=== PATIENT | male | born 1965 | race Caucasian/White ===

== ENCOUNTER 2019-03-25 16:33 | Emergency (ER) | payer BC ==
--- OUTSIDE RECORDS SUMMARY | ~2019-03-25 | XMS | Clinical Summary ---
Demographics + + + | Address | [address] | | | [place] [address] | + + + | Home Phone | | + + + | Preferred Language | Unknown | + + + | Marital Status | | + + + | Evangelical Affiliation | Unknown | + + + | Race | Unknown | + + + | Ethnic Group | Unknown | + + + Author + + + | Author | [facility] | | | and [place] | + + + | Organization | [facility] | | | and [place] | + + + | Address | Unknown | + + + | Phone | Unavailable | + + + Support + + +---------+ + | Name | Relationship | Address | Phone | + + +---------+ + | Treva Booker | ECON | Unknown | | + + +---------+ + Care Team Providers + +------+ + | Care Specimen Accessioner Name | Role | Phone | + +------+ + | Radames Ca MD | PCP | | + +------+ + Allergies Not on File Medications Not on file Active Problems Not on file Social History + +-------+ +--------+------+ | Tobacco Use | Types | Packs/Day | Years | Date | | | | | Used | | + +-------+ +--------+------+ | Current Some Day | | | | | | Smoker | | | | | + +-------+ +--------+------+ + + + | Sex Assigned at | Date Recorded | | | | + + + | Not on file | | + + + + + + + | Job Start Date | Occupation | Industry | + + + + | Not on file | Not on file | Not on file | + + + + + + + + | Travel History | Travel Start | Travel End | + + + + + + | No recent travel history available. | + + Last Filed Vital Signs Not on file Plan of Treatment + + + + + | Health Maintenance | Due Date | Last Done | Comments | + + + + + | Vaccine: | | | | | Dtap/Tdap/Td (1 - | 7 | | | | Tdap) | | | | + + + + + | Vaccine: Zoster (1 | | | | | of 2) | 6 | | | + + + + + | Vaccine: Influenza | | | | | (#1) | 9 | | | + + + + + Results Not on filefrom Last 3 Months"
--- OUTSIDE RECORDS SUMMARY | ~2019-03-25 | XMS | Encounter Summary ---
Demographics + + + | Address | [address] | | | [place] [address] | + + + | Home Phone | | + + + | Preferred Language | Unknown | + + + | Marital Status | | + + + | Yazidism Affiliation | Unknown | + + + | Race | Unknown | + + + | Ethnic Group | Unknown | + + + Author + + + | Author | [facility] | | | and [place] | + + + | Organization | [facility] | | | and [place] | [...] Team Providers + +------+ + | Care Heading Machine Operator Name | Role | Phone | + +------+ + PCP | Unavailable | + +------+ + Encounter Details +--------+ + + + + | Date | Type | Department | Care Team | Description | +--------+ + + + + | 02/23/ | Hospital | [facility] | Conversion | | | 1989 | Encounter | SYSTEM EMR | Transaction, | | | | | CONVERSION [address] | Provider Unknown | | | | | [address] [place], [place] | | | | | | [address] | | | | | | [phone] | | | +--------+ + + + + Social History + +-------+ +--------+------+ | Tobacco Use | Types | Packs/Day | Years | Date | | | | | Used | | + +-------+ +--------+------+ | Never Assessed | | | | | + +-------+ [...] recent travel history available. | + + documented as of this encounter Plan of Treatment Not on filedocumented as of this encounter Visit Diagnoses Not on filedocumented in this encounter"
--- OUTSIDE RECORDS SUMMARY | ~2019-03-25 | XMS | Clinical Summary ---
Demographics + + + | Address | [address] | | | [place] [address] | + + + | Home Phone | | + + + | Preferred Language | Unknown | + + + | Marital Status | | + + + | Bahai Affiliation | Unknown | + + + | Race | Unknown | + + + | Ethnic Group | Unknown | + + + Author + + + | Author | [facility] (Historical as of | | | 11-02-18) | + + + | Organization | [facility] (Historical as of | | | 11-02-18) | + + + | Address | Unknown | + + + | Phone | Unavailable | + + + Support + + +---------+ + | Name | Relationship | Address | Phone | + + +---------+ + | Treva Booker | ECON | Unknown | | + + +---------+ + Care Team Providers + +------+ + | Care Order Make Up Clerk Name | Role | Phone | + +------+ + | Anand Ca MD | PP | | + +------+ + Allergies No Known Allergies Current Medications + + +--------+---------+------+------+-------+ | Prescription | Sig. | Disp. | Refills | Star | End | Statu | | | | | | t | Date | s | | | | | | Date | | | + + +--------+---------+------+------+-------+ | atenolol | Take 25 mg by mouth | | | | | Activ | | (TENORMIN) 25 MG | daily. | | | | | e | | tablet | | | | | | | + + +--------+---------+------+------+-------+ | aspirin 81 MG EC | Take 81 mg by mouth | | | | | Activ | | tablet | daily with | | | | | e | | | breakfast. | | | | | | + + +--------+---------+------+------+-------+ | testosterone | Apply 3 pumps | 75 g | 3 | 09/0 | | Activ | | (ANDROGEL PUMP) | topically daily. | | | 8/20 | | e | | 20.25 MG/ACT (1.62%) | Apply to shoulders | | | 14 | | | | topical gel | and upper arm. | | | | | | + + +--------+---------+------+------+-------+ Active Problems + + + | Problem | Noted Date | + + + | Hypogonadism | 05/27/2013 | + + + Social History + +-------+ +--------+------+ | Tobacco Use | Types | Packs/Day | Years | Date | | | | | Used | | + +-------+ +--------+------+ | Current Some Day | | | | | | Smoker | | | | | + +-------+ +--------+------+ + + +---------+ + | Alcohol Use | Drinks/We | oz/Week | Comments | | | ek | | | + + +---------+ + | Yes | | | very little | + + +---------+ + + + + | Sex Assigned at | Date Recorded | | | | + + + | Not on file | | + + + Last Filed Vital Signs + + + + | Vital Sign | Reading | Time Taken | + + + + | Blood Pressure | 120/84 | 05/27/2013 11:37 AM PDT | + + + + | Pulse | 76 | 05/27/2013 11:37 AM PDT | + + + + | Temperature | 36.7 C (98.1 F) | 05/27/2013 11:37 AM PDT | + + + + | Respiratory Rate | - | - | + + + + | Oxygen Saturation | 96% | 05/27/2013 11:37 AM PDT | + + + + | Inhaled Oxygen | - | - | | Concentration | | | + + + + | Weight | 83 kg (183 lb) | 05/27/2013 11:37 AM PDT | + + + + | Height | 177.8 cm (5' 10") | 05/27/2013 11:37 AM PDT | + + + + | Body Mass Index | 26.26 | 05/27/2013 11:37 AM PDT | + + + + Plan of Treatment + + + + + | Health Maintenance | Due Date | Last Done | Comments | + + + + + | Vaccine: | | | | | Dtap/Tdap/Td (1 - | 5 | | | | Tdap) | | | | + + + + + | Vaccine: Zoster (1 | | | | | of 2) | 6 | | | + + + + + | Vaccine: Influenza | | | | | (#1) | 9 | | | + + + + + Results Not on filefrom Last 3 Months Insurance +---------+--------+ +------+-------+ + | Payer | Benefi | Subscriber | Type | Phone | Address | | | t Plan | ID | | | | | | / | | | | | | | Group | | | | | +---------+--------+ +------+-------+ + | PREMERA | PREMER | [id number] | | | [address] [address] | | | A BLUE | [phone] | | | [place] | | | CARD | | | | [phone] | +---------+--------+ +------+-------+ + + +--------+ +--------+ + + | Guarantor Name | Accoun | Relation to | Date | Phone | Billing Address | | | t Type | Patient | of | | | | | | | | | | + +--------+ +--------+ + + | RADAMES BOOKER | Person | Self [birth year] | Home: | [address] | | | al/Fam | | 1966 | [phone] | [place] [address] | | | anup | | | [phone] | | + +--------+ +--------+ + +
--- OUTSIDE RECORDS SUMMARY | ~2019-03-25 | XMS | Encounter Summary ---
Demographics + + + | Address | [address] | | | [place] [address] | + + + | Home Phone | | + + + | Preferred Language | Unknown | + + + | Marital Status | | + + + | Lutheran Affiliation | Unknown | + + + | Race | Unknown | + + + | Ethnic Group | Unknown | + + + Author + + + | Author | [facility] | | | and [place] | + + + | Organization | [facility] | | | and [place] | [...] Team Providers + +------+ + | Care Elevator Service Mechanic Name | Role | Phone | + +------+ + PCP | Unavailable | + +------+ + Encounter Details +--------+ + + + + | Date | Type | Department | Care Team | Description | +--------+ + + + + | 02/23/ | Hospital | [facility] | Conversion | | | 1989 | Encounter | SYSTEM EMR | Transaction, | | | | | CONVERSION [address] | Provider Unknown | | | | | [address] [place], [place] | | | | | | [address] | | | | | | [phone] | | | +--------+ + + + [...]
--- OUTSIDE RECORDS SUMMARY | ~2019-03-25 | XMS | Clinical Summary ---
Demographics + + + | Address | [address] | | | [place] [address] | + + + | Home Phone | | + + + | Preferred Language | Unknown | + + + | Marital Status | | + + + | Baptism Affiliation | Unknown | + + + | Race | Unknown | + + + | Ethnic Group | Unknown | + + + Author + + + | Author | [facility] (Historical as of | | | 11-02-18) | + + + | Organization | [facility] (Historical as of | | | 11-02-18) [...] Team Providers + +------+ + | Care Correctional Supervising Cook Name | Role | Phone | + [...] +------+-------+ + | PREMERA | PREMER | [id number] | | | [address] [address] | | | A BLUE | [phone] | | | [place] | | | CARD | | | | [phone] | +---------+--------+ +------+-------+ + + +--------+ +--------+ [...] | 1966 | [phone] | [place] [address] | | | anup | | | [phone] | | + +--------+ +--------+ + +
--- OUTSIDE RECORDS SUMMARY | ~2019-03-25 | XMS | Clinical Summary ---
Demographics + + + | Address | [address] | | | [place] [address] | + + + | Home Phone | | + + + | Preferred Language | Unknown | + + + | Marital Status | | + + + | Jehovah'S Witness Affiliation | Unknown | + + + | Race | Unknown | + + + | Ethnic Group | Unknown | + + + Author + + + | Author | [facility] | | | and [place] | + + + | Organization | [facility] | | | and [place] | [...] Team Providers + +------+ + | Care Pulp Mill Operator Name | Role | Phone | [...]
== END 2019-03-25 17:12 | disposition left against medical advice (07) ==
LOC: ED 16:33
DX: Z53.21 Procedure and treatment not carried out due to patient leaving prior to being seen by health care provider (principal)

== ENCOUNTER 2021-05-05 07:20 | Day surgery (SDC) | payer BC ==
[~2021-05-05] VITALS: Ht 175.3 cm; Wt 94.5 kg
[~2021-05-05 07:20] MED LIST: ATENOLOL100 MG PO; ATENOLOL25 MG PO; FENOFIBRATE145 MG PO; FLOMAX0.4 MG PO; SERTRALINE HCL50 MG PO
--- NOTE | 2021-05-05 08:48 | NUR ---
05/05/21 0848 Sheets,Isabel 0840 PT ARRIVED TO PACU ON 3L VIA NC, VSS. PT ASLEEP AND LARGE AMOUNT OF SNORING NOTED. PT LAYING ON SIDE AND HOB INCREASED.
--- NOTE | 2021-05-05 10:32 | OR ---
[facility] [address], [place] [address] Signed DATE OF OPERATION: 05/05/2021 SURGEON: Juan Acuna MD PREOPERATIVE DIAGNOSIS: Screening. POSTOPERATIVE DIAGNOSIS: 3 mm polyp at 8 cm. PROCEDURE: Colonoscopy with cold biopsy. ESTIMATED BLOOD LOSS: None. INDICATIONS: Elliot is a 55-year-old gentleman, asked to see me for his initial screening colonoscopy. He has been putting it off for five years. He said he is pretty anxious about the whole thing. He told me he has no lower GI complaints. 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 He said after a 6-hour rhinoplasty, he had rather significant nausea and vomiting. I think most of that was from blood in the stomach. Nevertheless, we decided to give him preoperative Zofran and Phenergan. In the office, I gave Elliot a booklet on colonoscopy. We had reviewed that in detail. He understands the nature of that test. There is risk including, but not limited to gas bloating, crampy abdominal pain, bleeding, perforation requiring surgery, and missed diagnosis. He also understands the need for the IV conscious sedation. He had expressed understanding and wished to proceed. PROCEDURE NOTE: Elliot was taken into our endoscopy suite and placed in the left lateral decubitus position. In the office, he was quite anxious today. He ended up with 7 mg of Versed and 175 mcg of fentanyl. Even then, he moaned and groaned just a little as we approached the right colon. A digital rectal exam had been performed and this was unremarkable except for his moderately enlarged and indurated prostate gland. He told me he takes medicine for the prostate gland. After this, the adult colonoscope was introduced and advanced under direct visualization of the camera. Elliot has a fairly short colon and the camera actually traveled quite readily. His prep was quite excellent. We could easily see the appendiceal orifice and the ileocecal valve. The scope was then slowly withdrawn. We took several pictures throughout for Electronically Signed By: JUAN ACUNA MD 05/05/21 1032 PATIENT NAME: JOSE BAIRD OPERATIVE REPORT DATE OF : 65 REPORT #: [id number] PHYSICIAN: JUAN ACUNA MD PCP: DEN PINTO PA-C REPORT IS CONFIDENTIAL AND NOT TO BE RELEASED WITHOUT AUTHORIZATION [facility] [address], [place] [address] Signed photodocumentation. No pathology in the colon whatsoever. Specifically, no diverticulosis or polyps in the colon. Once in the rectum, he had a very tiny 3 mm hyperplastic appearing polyp at around 8 cm. It was easily removed with the help of cold biopsy forceps. Upon retroflexion of the scope, he has minimal internal hemorrhoid columns. After this, the gas was suctioned out and the colonoscope removed. Overall, Elliot tolerated the procedure quite well. RECOMMENDATIONS: Elliot will follow up my office in 7 to 14 days to review his results. I suspect this will be a hyperplastic polyp and therefore he will be on the 10-year plan. Juan Acuna MD ALB/MODL /[id number] cc: CHARLIE Casarez MD Copies: DEN PINTO PA-C, ANDREW L MD ~ Electronically Signed By: JUAN ACUNA MD 05/05/21 1032 PATIENT NAME: JOSE BAIRD OPERATIVE REPORT DATE OF : 65 REPORT #: [id number] PHYSICIAN: JUAN ACUNA MD PCP: DEN PINTO PA-C REPORT IS CONFIDENTIAL AND NOT TO BE RELEASED WITHOUT AUTHORIZATION
--- NOTE | 2021-05-06 12:34 | PATH ---
[facility] [address] [place] [id number] Signed SPECIMEN(S): A POLYP AT 8 CM SPECIMEN SOURCE: A. POLYP AT 8 CM CLINICAL HISTORY: Screening colonoscopy. FINAL PATHOLOGIC DIAGNOSIS: Colon, polyp at 8 cm, polypectomy: - Hyperplastic polyp. - Negative for dysplasia or malignancy. NAL:cml:C2NR MICROSCOPIC EXAMINATION: Histologic sections of all submitted blocks are examined by light microscopy. These findings, together with the gross examination, support the pathologic diagnosis. GROSS DESCRIPTION: The specimen, labeled "WR, colon polyp at 8 cm," is received in formalin and consists of one forde soft tissue fragment that measures 0.2 cm in greatest dimension. The specimen is entirely submitted in cassette (A1). JS (under the direct supervision of a pathologist) The Gross Description was prepared using a voice recognition system. The report was reviewed for accuracy; however, sound-alike word errors, addition and/or deletions may occur. If there is any question about this report, please contact Client Services. PERFORMING LABORATORY: The technical component was performed by [facility] [address] [place] [address] (Wafer Abrading Machine Tender: Destiny Feldman MD; CLIA# [id number]). Professional interpretation was performed by [facility], [address] [address] (CLIA# [id number]). Diagnostician: Marisa Lozoya MD Pathologist Electronically Signed 05/06/2021 PATIENT NAME: JOSE BAIRD PATHOLOGY DATE OF : 65 REPORT #: [id number] PHYSICIAN: [facility] PATHOLOGY PCP: DEN PINTO PA-C REPORT IS CONFIDENTIAL AND NOT TO BE RELEASED WITHOUT AUTHORIZATION [address] [place], [place] [address] Signed Copies: ~ PATIENT NAME: JOSE BAIRD PATHOLOGY DATE OF : 65 REPORT #: [id number] PHYSICIAN: ADE[facility]YO PATHOLOGY PCP: DEN PINTO PA-C REPORT IS CONFIDENTIAL AND NOT TO BE RELEASED WITHOUT AUTHORIZATION
== END 2021-05-05 09:40 | disposition home or self-care (01) ==
LOC: OPS 07:20 → DS 07:20 → OPS 08:15
PROVIDERS: ATTEND Colon & Rectal Surgery
PROC: 0DBE8ZX Excision of Large Intestine, Via Natural or Artificial Opening Endoscopic, Diagnostic (ICD-10-PCS; principal; 2021-05-05 08:15)
DX: Z12.11 Encounter for screening for malignant neoplasm of colon (principal); K63.5 Polyp of colon; K64.8 Other hemorrhoids; I10 Essential (primary) hypertension
CPT/HCPCS: J2250; J2405; J2550; J3010; J7121

== ENCOUNTER 2022-11-26 10:51 | Emergency (ER) | payer OTHER ==
[~2022-11-26] VITALS: Ht 175.3 cm; Wt 90.3 kg
[2022-11-26] MEDS ORDERED: ERYTHROMYCIN1 GM OP (12:42)
[2022-11-26 13:12] VITALS: BP 157/93
== END 2022-11-26 13:12 | disposition home or self-care (01) ==
LOC: ED 10:51
DX: H10.9 Unspecified conjunctivitis (principal); Z79.899 Other long term (current) drug therapy
CPT/HCPCS: 99283

== ENCOUNTER 2024-07-21 10:25 | Day surgery (SDC) | payer OTHER ==
[2024-07-16 15:31] VITALS: BP 147/83
[2024-07-21] VITALS (7 sets, daily range): BP systolic 138–148; BP diastolic 76–92
[~2024-07-21] VITALS: Ht 180.3 cm; Wt 90.0 kg
[~2024-07-21 10:25] MED LIST changes: +ALLERGY RELIE15.8 ML NAS; -ATENOLOL25 MG PO; +ATORVASTATIN CA80 MG PO; +CEFAZOLIN SODIUM 2 GM/20 ML SYR IV SCH; +CLARITIN10 MG PO; +ERYTHROMYCIN1 GM OP; +HYDROmorphone HCL 1 MG/ML SYR IV PRN; +IBLOOD GLUCOSE TEST STRIP 1 EA TEST VI PRN; +LACTATED RINGER'S 1,000 ML IV SCH; +LIDOCAINE HCL 1% 5 ML SDV INJ ONE; +LISINOPRIL20 MG PO; +METFORMIN HCL500 M2 PO; +OXYCODONE/APAP 5/325 TAB PO PRN; +SERTRALINE HCL100 MG PO; -SERTRALINE HCL50 MG PO; +TENORMIN50 MG PO; +VITAMIN D350 MC3 PO; +diphenhydrAMINE HCL 25 MG CAP PO PRN; +ondansetron HCL 4 MG/2 ML VIAL IV PRN
[2024-07-21] MEDS ORDERED: CEFTRIAXONE SODIUM 1 GM in SODIUM CHLORIDE 0.9% 100 ML IV SCH (10:55)
[2024-07-21] MEDS ORDERED: IBLOOD GLUCOSE TEST STRIP 1 EA TEST XX PRN (12:15)
[2024-07-21] MEDS ORDERED: GLUCAGON,HUMAN RECOMBINANT 1 MG/ML VIAL SUB-Q PRN (12:15)
[2024-07-21] MEDS ORDERED: DEXTROSE 5% 1,000 ML IV PRN (12:15)
[2024-07-21] MEDS ORDERED: DEXTROSE 50% 50 ML SYR IV PRN ×2 (12:15)
[2024-07-21] MEDS ORDERED: ACETAMINOPHEN 1,000 MG/100 ML VIAL ONE (12:22)
[2024-07-21] MEDS ORDERED: DEXAMETHASONE SOD PHOS 4 MG/ML VIAL ONE (12:22)
[2024-07-21] MEDS ORDERED: KETOROLAC TROMETHAMINE 30 MG/ML VIAL ONE (12:22)
[2024-07-21] MEDS ORDERED: propofoL 200 MG/20 ML VIAL ONE ×3 (12:22→13:55)
[2024-07-21] MEDS ORDERED: ondansetron HCL 4 MG/2 ML VIAL ONE (12:22)
[2024-07-21] MEDS ORDERED: LIDOCAINE HCL 2% 5 ML SDV ONE (12:22)
[2024-07-21] MEDS ORDERED: fentaNYL citrate 100 MCG/2 ML VIAL ONE ×3 (12:23→13:44)
[2024-07-21] MEDS ORDERED: MIDAZOLAM HCL 2 MG/2 ML VIAL ONE (12:23)
[2024-07-21] MEDS ORDERED: KETAMINE in NS 50 MG/5 ML SYR ONE (12:24)
[2024-07-21] MEDS ORDERED: SCOPOLAMINE 1 MG/3 DAYS PATCH 1 EACH TDSY ONE (12:28)
[2024-07-21] MEDS ORDERED: SEVOFLURANE 250 ML BTL INH ONE (12:57)
[2024-07-21] MEDS ORDERED: NALOXONE HCL 0.4 MG SYR IV PRN (13:30)
[2024-07-21] MEDS ORDERED: droPERidol 5 MG/2 ML VIAL IV PRN (13:30)
[2024-07-21] MEDS ORDERED: HYDROmorphone HCL 1 MG/ML SYR IV PRN (13:30)
[2024-07-21] MEDS ORDERED: PROCHLORPERAZINE EDISYLATE 10 MG/2 ML VIAL IV PRN (13:30)
[2024-07-21] MEDS ORDERED: fentaNYL citrate 50 MCG/ML SDV IV PRN (13:30)
[2024-07-21] MEDS ORDERED: IBLOOD GLUCOSE TEST STRIP 1 EA TEST VI PRN (13:30)
[2024-07-21] MEDS ORDERED: ondansetron HCL 4 MG/2 ML VIAL IV PRN (13:30)
[2024-07-21] MEDS ORDERED: TRANEXAMIC ACID 1,000 MG/10 ML AMP ONE (14:53)
[2024-07-21] MEDS ORDERED: ePHEDrine sulfate 50 MG/ML AMP ONE (15:12)
--- NOTE | 2024-07-21 15:39 | NUR ---
07/21/24 1539 Beti Frias 1523 PT TO PACU SLEEPING ORAL AIRWAY IN PLACE. O2 VIA MASK FOGGING NOTED IN MASK.
--- NOTE | 2024-07-21 16:12 | NUR ---
PT RECIEVED FROM PACU FROM ORIN MEDINA. PT AWAKE AND ALERT ON RA. PT HAS CBI INFUSING AT THIS TIME WITH 250 OF YELLOW URINE PRESENT IN BAG. PT HAS NO COMPLAINTS OF PAIN AT THIS TIME. PT BELONGING WERE BROUGHT TO ROOM WITH PT ON BED. PT VITALS STABLE AND CPOX IN PLACE. PT HAS NO CURRENT CONCERNS AT THIS TIME.
[2024-07-21] MEDS ORDERED: IBLOOD GLUCOSE TEST STRIP 1 EA TEST XX SCH (17:00)
[2024-07-21] MEDS ORDERED: Insulin Regular, Human 100 UNIT/ML ML SUB-Q SCH (17:00)
--- NOTE | 2024-07-21 17:03 | NUR ---
PT CURRENTLY SITTING UP IN BED AT THIS TIME. WITH CBI CURRENTLY CLAMPED DUE TO URINE BEING YELLOW WITH OUT CLOTS AT THIS TIME. PT HAS NO PAIN AT THIS TIME AND HAS CALL LIGHT IN REACH.
--- NOTE | 2024-07-21 17:40 | NUR ---
PT SECOND SET OF VITALS WERE TAKEN, PT VITALS STABLE AND CPOX IN PLACE. PT ON RA WITH NO CONCERNS AT THIS TIME. PT HAS DINNER AND TOLERATING WELL CALL LIGHT IN REACH AT THIS TIME.
[2024-07-21] MEDS ORDERED: OXYCODONE HCL5 MG PO (18:00)
[2024-07-21] MEDS ORDERED: LEVOFLOXACIN500 MG PO (18:02)
--- NOTE | 2024-07-21 19:34 | NUR ---
REPORT RECEIVED FROM DAY SHIFT RN. PT LYING IN BED ALERT AND ORIENTED. SANDWICH BOX PROVIDED. CBI CLAMPED. URINE IN CALDERON TUBING CLEAR YELLOW. PT DENIES FURTHER NEEDS. WHITE BOARD UPDATED. CALL LIGHT IN REACH.
--- NOTE | 2024-07-21 21:51 | NUR ---
EVENING ASSESSMENT COMPLETE. SCHEDULED MEDS ADMIN PER EMAR. PT DENIES PAIN OR NAUSEA. URINE IN CALDERON TUBING CLEAR YELLOW. NO CLOTS NOTED. CBI REMAINS CLAMPED. CALDERON CARE DONE. PT EDUCATION PROVIDED. SCD'S/CPOX IN PLACE. HOME CPAP SET UP BY RT. PT DENIES QUESTIONS OR CONCERNS. CALL LIGHT IN REACH.
--- NOTE | 2024-07-21 23:05 | NUR ---
PT RESTING IN BED WITH EYES CLOSED. RESPIRATIONS EVEN. SpO2 93% WITH HOME CPAP IN PLACE. HR 80'S.
[2024-07-22 02:19] VITALS: BP 141/80
--- NOTE | 2024-07-22 02:22 | NUR ---
PT RESTING IN BED WITH EYES CLOSED. AWAKENS EASILY. VS AND I&O OBTAINED. PT DENIES PAIN OR NAUSEA. CALDERON PATENT WITH LIGHT PINK URINE. NO BLOOD CLOTS NOTED. URINE IN CALDERON TUBING CLEAR YELLOW. NO FURTHER NEEDS. CALL LIGHT IN REACH.
--- NOTE | 2024-07-22 04:12 | NUR ---
PT RESTING IN BED WITH EYES CLOSED. RESPIRATIONS EVEN. CALL LIGHT IN REACH.
[2024-07-22 05:21] VITALS: BP 153/85
[2024-07-22 05:22] VITALS: BP 153/85
--- NOTE | 2024-07-22 05:27 | NUR ---
PT AWAKE IN BED. VS AND I&O OBTAINED. CBI CLAMPED. URINE IN CALDERON TUBING LIGHT PINK. NO CLOTS NOTED. PT DENIES PAIN OR NAUSEA. COFFEE PROVIDED. NO FURTHER NEEDS.
--- NOTE | 2024-07-22 07:20 | NUR ---
MORNING REPORT RECIEVED WILY HERNANDEZ RN. [T LAYING IN BED AWAKE AND ALERT AT THIS TIME PT HAS NO CURRENT CONCERNS AT THIS TIME. PT URINE IS SLIGHTY BLOOD TINGED BUT NO CLOTS ARE PRESENT AT THIS TIME. PT DID STATE " HE MOVED AROUND ALOT LAST NIGHT IN HIS SLEEP". PT HAS NO OTHER NEEDS AT THIS TIME CALL LIGHT IN REACH.
--- NOTE | 2024-07-22 07:36 | NUR ---
UR CLINICAL REVIEW: [facility] REVIEW MEETS EXTENDED STAY CRITERIA FOR TURP [facility] EXTENDED STAY 07/21/24 @ 0958 ORDER MATCHES REG NO AUTH REQUIRED FOR EXTENDED STAY RECOVERY ANTICIPATE DC THIS AM WHEN CBI IS DC'D
--- NOTE | 2024-07-22 08:10 | NUR ---
PT SITTING UP IN BED AT THIS TIME PT DC PAPER WORK IN PROGRESS AND PT IS HAPPY TO BE GOING HOME. PT HAS NO CURRENT CONCERNS AT THIS TIME AND HAS CALL LIGHT IN REACH AT THIS TIME.
--- NOTE | 2024-07-22 08:25 | NUR ---
ALERT AND ORIENTED IN BED. LIVES IN SINGLE LEVEL HOME. HAS ONLY CPAP FOR DME. DRIVES AT BASELINE. NO FINANCIAL ISSUES. PLAN TO DC TO HOME TODAY. NO CM NEEDS.
--- NOTE | 2024-07-22 08:28 | NUR ---
MED REC COMPLETE
[2024-07-22] MEDS ORDERED: CEFTRIAXONE SODIUM 1 GM in SODIUM CHLORIDE 0.9% 100 ML IV SCH (09:00)
[2024-07-22] MEDS ORDERED: atenoloL 25 MG TAB PO SCH (09:00)
[2024-07-22] MEDS ORDERED: lisinopriL 20 MG TAB PO SCH (09:00)
[2024-07-22] MEDS ORDERED: SERTRALINE HCL 50 MG TAB PO SCH (09:00)
[2024-07-22 09:22] VITALS: BP 145/83
--- NOTE | 2024-07-22 10:11 | NUR ---
PT DC EDUCATION GIVEN AND READ TO PT. PT HAS NO QUESTIONS AT THIS TIME. PT EDUCATED ON CATH CARE AND THAT THEY HAVE A FOLLOW UP [facility] MD SERNA TOMORROW. PT HAS BELONINGS AT THIS TIME AND , AND SHARED SERVICES MANAGER CURRENTLY IN ROOM. CALL LIGHT IN REACH.
--- NOTE | 2024-07-25 15:27 | PATH ---
[facility] [address] [place], [place] [address] Signed SPECIMEN(S): A PROSTATE CHIPS SPECIMEN SOURCE: A. PROSTATE CHIPS CLINICAL HISTORY: BPH with LUTS; bladder outlet obstruction. FINAL PATHOLOGIC DIAGNOSIS: Prostate chips: - Benign prostatic glandular tissue with stromal and glandular hyperplasia. - Chronic stromal and glandular inflammation. JVR:troy MICROSCOPIC EXAMINATION: Histologic sections of all submitted blocks are examined by light microscopy. These findings, together with the gross examination, support the pathologic diagnosis. GROSS DESCRIPTION: The specimen, labeled and designated "Jhony, W, " and designated on the requisition "prostate chips," is received in formalin is a 27 g, 9.6 x 8.5 x 1.7 cm aggregate of pink-forde to lara rubbery soft tissue. Approximately 60% of the specimen is submitted in (A1-A11). FB (under the direct supervision of a pathologist) The Gross Description was prepared using a voice recognition system. The report was reviewed for accuracy; however, sound-alike word errors, addition and/or deletions may occur. If there is any question about this report, please contact Client Services. PERFORMING LABORATORY: Technical component was performed by [facility], [address] [place] [address] (CLIA# [id number]). Professional interpretation was performed by [facility], [address] [place] [id number] (CLIA#: [id number]). Diagnostician: Vaughn Hunt MD Pathologist Electronically Signed 07/25/2024 PATIENT NAME: JOSE BAIRD PATHOLOGY DATE OF : 65 REPORT #: [id number] PHYSICIAN: ADEBAYO LEVINE PCP: TATIANNA MAST PAC REPORT IS CONFIDENTIAL AND NOT TO BE RELEASED WITHOUT AUTHORIZATION [address] [place], [place] [address] Signed Copies: ~ PATIENT NAME: JOSE BAIRD PATHOLOGY DATE OF : 65 REPORT #: [id number] PHYSICIAN: ADEBAYO PATHOLOGY PCP: TATIANNA MAST PAC REPORT IS CONFIDENTIAL AND NOT TO BE RELEASED WITHOUT AUTHORIZATION
== END 2024-07-22 10:15 | disposition home or self-care (01) ==
LOC: DS 10:25 → MS 15:56 → DS 07-22 10:15
PROVIDERS: ATTEND Urology
PROC: 0VT08ZZ Resection of Prostate, Via Natural or Artificial Opening Endoscopic (ICD-10-PCS; principal; 2024-07-21 12:30)
DX: N40.1 Benign prostatic hyperplasia with lower urinary tract symptoms (principal); R39.11 Hesitancy of micturition; R39.12 Poor urinary stream; N41.1 Chronic prostatitis; I10 Essential (primary) hypertension; E11.9 Type 2 diabetes mellitus without complications; Z79.899 Other long term (current) drug therapy
CPT/HCPCS: 00914; 51700; 88305; 96360; 96361; 96374; C1713; C1769; J0131; J0690; J0696; J1100; J1815; J1885; J2003; J2250; J2405; J2704; J3010; J3490; J7121